=== PATIENT | male | born 1965 | race Caucasian/White ===

== ENCOUNTER 2016-10-17 04:12 | Emergency (ER) | payer OTHER ==
[~2016-10-17] VITALS: Ht 170.2 cm; Wt 89.0 kg
[2016-10-17] MEDS ORDERED: IBUPROFEN 600MG TABLET PO ONE (07:30)
[2016-10-17] MEDS ORDERED: PREDNISONE 20MG TABLET PO ONE (07:30)
[2016-10-17 07:32] VITALS: BP 140/74
== END 2016-10-17 07:40 | disposition home or self-care (01) ==
LOC: ER 04:13
DX: J02.9 Acute pharyngitis, unspecified (principal); E78.00 Pure hypercholesterolemia, unspecified
CPT/HCPCS: 99283; J7512